=== PATIENT | female | born 1990 | race Caucasian/White ===

== ENCOUNTER 2017-06-19 00:26 | Emergency (ER) | payer MEDICAID ==
[2017-06-19 02:18] VITALS: BP 102/71
== END 2017-06-19 02:18 | disposition home or self-care (01) ==
LOC: ED 00:26
DX: G56.03 Carpal tunnel syndrome, bilateral upper limbs (principal)
CPT/HCPCS: 82962

== ENCOUNTER 2018-02-14 09:04 | Emergency (ER) | payer MEDICAID ==
[~2018-02-14] VITALS: Ht 152.4 cm; Wt 59.0 kg
[2018-02-14 09:06] VITALS: Ht 152.4 cm; Wt 59.0 kg
[2018-02-14 11:04] VITALS: BP 115/69
== END 2018-02-14 11:04 | disposition home or self-care (01) ==
LOC: ED 09:04
DX: S43.402A Unspecified sprain of left shoulder joint, initial encounter (principal); X50.0XXA Overexertion from strenuous movement or load, initial encounter; Y93.89 Activity, other specified; Y99.8 Other external cause status; Y92.89 Other specified places as the place of occurrence of the external cause
CPT/HCPCS: J1885; Q0092

== ENCOUNTER 2018-03-31 20:31 | Emergency (ER) | payer MEDICAID ==
[~2018-03-31] VITALS: Ht 152.4 cm; Wt 63.0 kg
[2018-03-31 20:36] VITALS: Ht 152.4 cm; Wt 63.0 kg
[2018-03-31 22:24] LABS: PLATELET COUNT 247 x10^3mcL (130-400); RED CELL DISTRIBUTION WIDTH 14.2 % (11.5-14.5)
[2018-03-31 22:35] LABS: CALCIUM 8.8 mg/dL (8.5-10.1); CARBON DIOXIDE 26.8 mmol/L (21-32); CHLORIDE SERUM 106 mmol/L (98-107); CREATININE SERUM 0.6 mg/dL (0.6-1.0); GFR1 > 60 mL/min; GLUCOSE SERUM 97 mg/dL (74-106); POTASSIUM SERUM 3.6 mmol/L (3.5-5.1); SODIUM SERUM 140 mmol/L (136-145)
[2018-03-31 22:41] LABS: ALBUMIN 3.8 g/dL (3.4-5.0); ALKALINE PHOSPHATASE 69 U/L (46-116); ALT/SGPT 43 U/L (14-59); AST/SGOT 16 U/L (15-37); BILIRUBIN TOTAL 0.2 mg/dL (0.20-1.00); LIPASE 99 IU/L (73-393); TOTAL PROTEIN, SERUM 7.5 g/dL (6.4-8.2)
[2018-03-31 22:58] LABS: UA SPECIFIC GRAVITY 1.015 (1.005-1.035); microscopic required? YES; urine erythrocyte TRACE (NEGATIVE)
[2018-04-01 00:52] VITALS: BP 125/66
== END 2018-04-01 00:52 | disposition home or self-care (01) ==
LOC: ED 20:31
PROVIDERS: Emergency Medicine
DX: R07.89 Other chest pain (principal); R10.12 Left upper quadrant pain; R10.11 Right upper quadrant pain; R11.10 Vomiting, unspecified; R19.7 Diarrhea, unspecified
CPT/HCPCS: J1885; J2270; J7030

== ENCOUNTER 2018-04-02 16:38 | Emergency (ER) | payer MEDICAID ==
[~2018-04-02] VITALS: Ht 152.4 cm; Wt 62.8 kg
[2018-04-02 16:43] VITALS: Ht 152.4 cm; Wt 62.8 kg
[2018-04-02 19:04] LABS: AMYLASE 51 U/L (25-115); LIPASE 94 IU/L (73-393)
[2018-04-02 19:05] LABS: BASOPHIL % 0.6 % (0-2); PLATELET COUNT 210 x10^3mcL (130-400); RED CELL DISTRIBUTION WIDTH 13.9 % (11.5-14.5)
[2018-04-02 19:07] LABS: AMPHETAMINE QUAL UR NONE DETECTED (NEG <=1000)
[2018-04-02 21:27] VITALS: BP 119/74
== END 2018-04-02 21:27 | disposition home or self-care (01) ==
LOC: ED 16:38
PROVIDERS: Emergency Medicine
DX: N20.0 Calculus of kidney (principal); F17.210 Nicotine dependence, cigarettes, uncomplicated; F10.129 Alcohol abuse with intoxication, unspecified
CPT/HCPCS: 99406; J0500; J1885; J7030; Q0092; Q0162

== ENCOUNTER 2018-07-12 11:45 | Emergency (ER) | payer MEDICAID ==
[~2018-07-12] VITALS: Ht 152.4 cm; Wt 63.0 kg
[2018-07-12 11:52] VITALS: Ht 152.4 cm; Wt 63.0 kg
[2018-07-12 12:17] VITALS: BP 128/78
== END 2018-07-12 12:17 | disposition home or self-care (01) ==
LOC: ED 11:45
DX: L03.114 Cellulitis of left upper limb (principal)

== ENCOUNTER 2018-07-13 10:15 | Emergency (ER) | payer MEDICAID ==
[~2018-07-13] VITALS: Ht 152.4 cm; Wt 63.0 kg
[2018-07-13 10:30] VITALS: Ht 152.4 cm; Wt 63.0 kg
[2018-07-13 12:15] VITALS: BP 1136/46
== END 2018-07-13 12:15 | disposition home or self-care (01) ==
LOC: ED 10:15
DX: L03.113 Cellulitis of right upper limb (principal)
CPT/HCPCS: J7512; Q0162

== ENCOUNTER 2019-04-06 17:55 | Emergency (ER) | payer MEDICAID ==
[~2019-04-06] VITALS: Ht 152.4 cm; Wt 62.6 kg
[2019-04-06 18:05] VITALS: Ht 152.4 cm; Wt 62.6 kg
[2019-04-06 19:44] VITALS: BP 105/59
== END 2019-04-06 19:44 | disposition home or self-care (01) ==
LOC: ED 17:55
DX: M13.872 Other specified arthritis, left ankle and foot (principal); G89.29 Other chronic pain; Z87.442 Personal history of urinary calculi

== ENCOUNTER 2020-03-05 13:02 | Emergency (ER) | payer MEDICAID ==
[~2020-03-05] VITALS: Ht 152.4 cm; Wt 62.1 kg
[2020-03-05 13:06] VITALS: BP 131/78; Ht 152.4 cm; Wt 62.1 kg
== END 2020-03-05 14:08 | disposition home or self-care (01) ==
LOC: ED 13:02
DX: R21 Rash and other nonspecific skin eruption (principal); M79.10 Myalgia, unspecified site; R50.9 Fever, unspecified
CPT/HCPCS: J7512; Q0163

== ENCOUNTER 2020-03-09 15:59 | Emergency (ER) | payer MEDICAID ==
[~2020-03-09] VITALS: Ht 152.4 cm; Wt 61.7 kg
[2020-03-09 16:05] VITALS: Ht 152.4 cm; Wt 61.7 kg
[2020-03-09 16:34] LABS: BASOPHIL % 0.5 % (0-2); PLATELET COUNT 241 x10^3mcL (130-400)
[2020-03-09 16:35] LABS: RED CELL DISTRIBUTION WIDTH 16.1 % (11.5-14.5)
[2020-03-09 17:07] VITALS: BP 121/77
== END 2020-03-09 17:07 | disposition home or self-care (01) ==
LOC: ED 15:59
PROVIDERS: Emergency Medicine
DX: B09 Unspecified viral infection characterized by skin and mucous membrane lesions (principal); Z87.442 Personal history of urinary calculi
CPT/HCPCS: 36415; Q0092

== ENCOUNTER 2020-03-16 21:05 | Emergency (ER) | payer MEDICAID ==
[~2020-03-16] VITALS: Ht 157.5 cm; Wt 61.2 kg
[2020-03-16 21:07] VITALS: BP 128/74; Ht 157.5 cm; Wt 61.2 kg
== END 2020-03-16 23:34 | disposition home or self-care (01) ==
LOC: ED 21:05
DX: L50.9 Urticaria, unspecified (principal)
CPT/HCPCS: J1100; Q0163